=== PATIENT | female | born 1950 | race Two or more races ===

== ENCOUNTER 2025-03-18 10:01 | Emergency (ER) | payer OTHER ==
[~2025-03-18] VITALS: Ht 157.5 cm; Wt 74.4 kg
[2025-03-18] MEDS ORDERED: LOSARTAN POTASS50 MG PO (10:22)
[2025-03-18] MEDS ORDERED: ORPHENADRINE CITRATE 30 MG/ML AMPUL IM ONE (11:00)
[2025-03-18] MEDS ORDERED: KETOROLAC TROMETHAMINE 60 MG VIAL IM ONE (11:00)
[2025-03-18] MEDS ORDERED: DEXAMETHASONE SODIUM PHOSPHATE 4 MG/ML VIAL IM ONE (11:00)
[2025-03-18] MEDS ORDERED: KETO10TA2 PO (14:25)
[2025-03-18] MEDS ORDERED: NORFLEX100MG PO (14:25)
== END 2025-03-18 14:42 | disposition home or self-care (01) ==
LOC: ER 10:01
DX: S52.292A Other fracture of shaft of left ulna, initial encounter for closed fracture (principal); S62.009A Unspecified fracture of navicular [scaphoid] bone of unspecified wrist, initial encounter for closed fracture; S52.90XA Unspecified fracture of unspecified forearm, initial encounter for closed fracture; W19.XXXA Unspecified fall, initial encounter; Y93.89 Activity, other specified; Y92.89 Other specified places as the place of occurrence of the external cause; Y99.8 Other external cause status; I10 Essential (primary) hypertension; E11.9 Type 2 diabetes mellitus without complications; Z88.5 Allergy status to narcotic agent
CPT/HCPCS: 70450; 70486; 70490; 73090; 73110; 73130; 96372; 99284; J1100; J1885; J2360

== ENCOUNTER 2025-03-21 16:03 | Outpatient (CLI) | payer OTHER ==
[~2025-03-21 16:03] MED LIST: KETO10TA2 PO; LOSARTAN POTASS50 MG PO; NORFLEX100MG PO
== END 2025-03-21 16:12 | disposition home or self-care (01) ==
LOC: TOM 16:03
PROVIDERS: ATTEND Orthopaedic Surgery
DX: S52.572A Other intraarticular fracture of lower end of left radius, initial encounter for closed fracture (principal)

== ENCOUNTER 2025-03-29 10:00 | Outpatient (CLI) | payer OTHER | END 2025-03-29 10:05 | disposition home or self-care (01) | LOC: RAD 10:00 | PROVIDERS: ATTEND Orthopaedic Surgery | DX: S52.572A Other intraarticular fracture of lower end of left radius, initial encounter for closed fracture (principal) ==

== ENCOUNTER 2025-04-06 10:15 | Outpatient (CLI) | payer OTHER | END 2025-04-06 10:21 | disposition home or self-care (01) | LOC: RAD 10:15 | PROVIDERS: ATTEND Orthopaedic Surgery | DX: M25.531 Pain in right wrist (principal); S52.572A Other intraarticular fracture of lower end of left radius, initial encounter for closed fracture ==